=== PATIENT | female | born 1945 | race Caucasian/White ===

== ENCOUNTER 2018-09-17 12:18 | Outpatient (REF) | payer MEDICARE, BC, SELFPAY ==
[2018-09-17 20:54] LABS: Anion Gap 10.8 mmol/L (3-11); BUN 36 mg/dL (7-18); CO2 29.2 mmol/L (21.0-32.0); CREATININE 2.28 mg/dL (0.55-1.02); Calcium 9.2 mg/dL (8.5-10.1); Chloride 103 mmol/L (98-107); Glucose 211 mg/dL (70-100); Potassium 3.9 mmol/L (3.5-5.1); Sodium 143 mmol/L (136-145)
[2018-09-17 21:09] LABS: COMMENT (LAB VIEW ONLY) 132.93 mg/dL; Microalb ug/mg Crea 87.4 ug/mg Cr
== END 2018-09-17 12:38 ==
LOC: NCHCN 12:18
PROVIDERS: PCP Family Medicine; Visit Provider Family Medicine
DX: E11.9 Type 2 diabetes mellitus without complications (principal); I10 Essential (primary) hypertension; N18.4 Chronic kidney disease, stage 4 (severe)
CPT/HCPCS: 80048; 82043; 82570

== ENCOUNTER 2020-06-28 12:02 | Outpatient (REF) | payer MEDICARE, BC, SELFPAY ==
[2020-06-28 21:49] LABS: Anion Gap 9.7 mmol/L (3-11); BUN 32 mg/dL (7-18); CO2 25.3 mmol/L (21.0-32.0); CREATININE 2.26 mg/dL (0.55-1.02); Calcium 8.9 mg/dL (8.5-10.1); Chloride 106 mmol/L (98-107); Estimated GFR 21.15 (mL/min/1.73m2); Glucose 106 mg/dL (74-106); Sodium 141 mmol/L (136-145)
== END 2020-06-28 12:22 ==
LOC: NCHCN 12:02
PROVIDERS: PCP Family Medicine; Visit Provider Family Medicine
DX: N18.4 Chronic kidney disease, stage 4 (severe) (principal)
CPT/HCPCS: 80048

== ENCOUNTER 2020-11-15 11:16 | Outpatient (REF) | payer MEDICARE, BC, SELFPAY ==
[2020-11-15 13:48] LABS: Anion Gap 11.3 mmol/L (3-11); BUN 34 mg/dL (7-18); CO2 23.7 mmol/L (21.0-32.0); Calculated LDL 55 mg/dL (<100); Chloride 106 mmol/L (98-107); Cholesterol 125 mg/dL (<200); Estimated GFR 24.29 (mL/min/1.73m2); Glucose 122 mg/dL (74-106); HDL Cholesterol 50 mg/dL (40-60); Potassium 3.9 mmol/L (3.5-5.1); Sodium 141 mmol/L (136-145); Triglyceride 103 mg/dL (<150)
[2020-11-15 14:01] LABS: Uric Acid 7.5 mg/dL (2.6-6.0)
[2020-11-15 14:29] LABS: Microalb ug/mg Crea 233.1 ug/mg Cr
== END 2020-11-15 11:17 | disposition home or self-care (01) ==
LOC: NCHCN 11:16
PROVIDERS: PCP Family Medicine; Visit Provider Family Medicine
DX: E11.9 Type 2 diabetes mellitus without complications (principal); N18.4 Chronic kidney disease, stage 4 (severe); I10 Essential (primary) hypertension; M10.9 Gout, unspecified
CPT/HCPCS: 80048; 80061; 82043; 82570; 84550

== ENCOUNTER 2021-05-16 14:34 | Outpatient (REF) | payer MEDICARE, BC, SELFPAY ==
[2021-05-16 14:31] LABS: HGB 12.1 g/dL (11.2-15.7); MCH 31.3 pg (27.0-33.0); MCHC 33.6 % (32.0-36.0); MCV 93.3 fL (80-95); MPV 11.5 fL (8.0-11.0); Platelet Count 213 10^3/uL (130-400); RBC 3.86 10^6/uL (3.93-5.22); RDW 12.2 % (11.7-14.6); RDW-SD 41.7 fL; WBC 8.84 10^3/uL (4.4-10.8)
[2021-05-16 14:49] LABS: Hemoglobin A1C 7.1 % (<5.7)
[2021-05-16 15:12] LABS: Magnesium 1.6 mg/dL (1.8-2.4)
[2021-05-16 15:36] LABS: COMMENT (LAB VIEW ONLY) 127.65 mg/dL; Microalb ug/mg Crea 68.1 ug/mg Cr
[2021-05-16 18:19] LABS: Vitamin D 25 Total 35.9 ng/mL (30-100)
[2021-05-16 18:24] LABS: ALT 25 U/L (14-59); AST 18 U/L (15-37); Albumin 4.2 g/dL (3.4-5.0); Alkaline Phosphatase 129 U/L (46-116); Anion Gap 12.6 mmol/L (3-11); BUN 41 mg/dL (7-18); Bilirubin, Total 0.9 mg/dL (0.2-1.0); CO2 23.4 mmol/L (21.0-32.0); CREATININE 2.4 mg/dL (0.55-1.02); Calcium 9.1 mg/dL (8.5-10.1); Chloride 107 mmol/L (98-107); Estimated GFR 19.68 (mL/min/1.73m2); Glucose 220 mg/dL (74-106); Potassium 3.8 mmol/L (3.5-5.1); Sodium 143 mmol/L (136-145); Total Protein 7.2 g/dL (6.4-8.2); Vitamin B12 287 pg/mL (193-986)
[2021-05-16 18:34] LABS: PHOSPHORUS 3.7 mg/dL (2.6-4.7)
[2021-05-17 08:52] LABS: Parathyroid Hormone,Intact 43 pg/mL (19-88)
== END 2021-05-16 14:35 | disposition home or self-care (01) ==
LOC: NCHCN 14:34
PROVIDERS: PCP Family Medicine; Referring Provider Family Medicine; Visit Provider Family Medicine
DX: E11.9 Type 2 diabetes mellitus without complications (principal); I10 Essential (primary) hypertension; N18.4 Chronic kidney disease, stage 4 (severe); E55.9 Vitamin D deficiency, unspecified; D75.89 Other specified diseases of blood and blood-forming organs; E83.42 Hypomagnesemia; E78.5 Hyperlipidemia, unspecified; M10.9 Gout, unspecified
CPT/HCPCS: 80053; 82306; 85027; 82043; 82570; 82607; 83036; 83735; 83970; 84100

== ENCOUNTER 2021-08-09 23:56 | Outpatient (REF) | payer MEDICARE, BC, SELFPAY ==
[2021-08-09 20:56] LABS: BUN 36 mg/dL (7-18); CREATININE 2.5 mg/dL (0.55-1.02); Chloride 105 mmol/L (98-107); Estimated GFR 18.72 (mL/min/1.73m2); Glucose 155 mg/dL (74-106); Potassium 3.7 mmol/L (3.5-5.1); Sodium 142 mmol/L (136-145)
== END 2021-08-09 23:57 | disposition home or self-care (01) ==
LOC: NCHCN 23:56
PROVIDERS: PCP Family Medicine; Visit Provider Family Medicine
DX: N18.4 Chronic kidney disease, stage 4 (severe) (principal)
CPT/HCPCS: 80048

== ENCOUNTER 2021-12-17 16:34 | Outpatient (REF) | payer MEDICARE, BC, SELFPAY ==
[2021-12-19 12:32] LABS: COVID-19 RT-PCR UVMMC Result Negative (Negative)
== END 2021-12-17 16:35 | disposition home or self-care (01) ==
LOC: NCHCN 16:34
PROVIDERS: PCP Family Medicine; Visit Provider Registered Nurse
DX: Z20.822 Contact with and (suspected) exposure to COVID-19 (principal); J02.9 Acute pharyngitis, unspecified
CPT/HCPCS: U0003

== ENCOUNTER 2022-11-28 16:17 | Outpatient (REF) | payer MEDICARE, BC, SELFPAY ==
[2022-11-28 21:33] LABS: HCT 39.7 % (36.0-46.0); HGB 13.4 g/dL (11.2-15.7); MCH 30.7 pg (27.0-33.0); MCHC 33.8 % (32.0-36.0); MCV 91 fL (80-95); MPV 11.3 fL (8.0-11.0); Platelet Count 261 10^3/uL (130-400); RBC 4.37 10^6/uL (3.93-5.22); RDW 13.4 % (11.7-14.6); RDW-SD 44.9 fL; WBC 9.95 10^3/uL (4.4-10.8)
[2022-11-28 22:22] LABS: ALT 31 U/L (14-59); AST 29 U/L (15-37); Alkaline Phosphatase 111 U/L (46-116); Anion Gap 10.1 mmol/L (3-11); BUN 35 mg/dL (7-18); Bilirubin, Total 1.2 mg/dL (0.2-1.0); CO2 27.9 mmol/L (21.0-32.0); CREATININE 2.3 mg/dL (0.55-1.02); Calcium 9.2 mg/dL (8.5-10.1); Calculated LDL 51 mg/dL (<100); Chloride 104 mmol/L (98-107); Cholesterol 138 mg/dL (<200); Estimated GFR 21.36 (mL/min/1.73m2); Glucose 148 mg/dL (74-106); HDL Cholesterol 48 mg/dL (40-60); Potassium 3.9 mmol/L (3.5-5.1); Sodium 142 mmol/L (136-145); TSH (W/Ref FT4) 6.35 uIU/mL (0.36-3.74); Total Protein 7.8 g/dL (6.4-8.2); Triglyceride 197 mg/dL (<150)
[2022-11-28 22:25] LABS: Vitamin B12 > 2000 pg/mL (193-986)
[2022-11-28 22:51] LABS: FREE T4 0.82 ng/dL (0.76-1.46)
== END 2022-11-28 16:18 | disposition home or self-care (01) ==
LOC: NCHCN 16:17
PROVIDERS: PCP Family Medicine; Visit Provider Family Medicine
DX: E11.9 Type 2 diabetes mellitus without complications (principal); E53.8 Deficiency of other specified B group vitamins; F03.90 Unspecified dementia, unspecified severity, without behavioral disturbance, psychotic disturbance, mood disturbance, and anxiety
CPT/HCPCS: 80053; 80061; 85027; 82607; 84439; 84443

== ENCOUNTER 2023-02-27 13:41 | Outpatient (REF) | payer MEDICARE, BC, SELFPAY ==
[2023-02-27 16:02] LABS: Anion Gap 8.5 mmol/L (3-11); BUN 38 mg/dL (7-18); CO2 27.5 mmol/L (21.0-32.0); CREATININE 2.3 mg/dL (0.55-1.02); Chloride 106 mmol/L (98-107); Estimated GFR 21.36 (mL/min/1.73m2); Glucose 197 mg/dL (74-106); Potassium 3.7 mmol/L (3.5-5.1); Sodium 142 mmol/L (136-145)
[2023-02-27 16:27] LABS: Vitamin D 25 Total 57.8 ng/mL (30-100)
[2023-02-27 18:03] LABS: COMMENT (LAB VIEW ONLY) 169.72 mg/dL
== END 2023-02-27 13:42 | disposition home or self-care (01) ==
LOC: NCHCN 13:41
PROVIDERS: PCP Family Medicine; Visit Provider Family Medicine
DX: E55.9 Vitamin D deficiency, unspecified (principal); N18.4 Chronic kidney disease, stage 4 (severe); E11.9 Type 2 diabetes mellitus without complications
CPT/HCPCS: 80048; 82306; 82043; 82570

== ENCOUNTER 2023-04-09 09:05 | Outpatient (REF) | payer MEDICARE, BC, SELFPAY ==
--- OUTSIDE RECORDS SUMMARY | 2023-04-09 09:09 | XMS_ITS | CCD ---
Author Name Unknown Address [address] [place] [address] [phone] Organization Unknown Address [address] [place] [address] [phone] Care Team Providers Care Transportation Dispatcher Name Role Phone LINDA VELOZ Attending Physician [phone] Vital Signs Unknown or Not Available. Allergies Allergy Code Allergy Type Reaction Status MORPHINE 7052 Drug allergy Active Procedures Unknown or Not Available. History of Immunizations Unknown or Not Available. Problems Problem Code Start Date Resolved Date Status Chest pain 61838600 Active CAD 98027048 Active CKD stage 3 962212727 Active Diabetes type 2 with nephropathy 661745473 Active Results MICROALBUMIN URINE - Collect Date/Time: 03/11/2023 08:58 Test Name Code Test Result Test Units Test Ref Rang e Creatinine Urine 2161-8 219.4 mg/dl Microalb mg/dl 28698-2 53.8 mg/dl Microalbumin ug/mg C 9318-7 245.2 ug/mg Cr RENAL FUNCTION PANEL - [facility] ct Date/Time: 03/11/2023 08:58 Test Name Code Test Result Test Units Test Ref Rang e GLUCOSE 2345-7 202 mg/dL L=70 H=116 BUN 3094-0 28 mg/dL L=6 H=25 CREATININE 2160-0 2.45 mg/dL L=0.51 H=0.95 SODIUM SERUM 2951-2 138 mmol/L L=136 H=145 POTASSIUM SERUM 2823-3 3.7 mmol/L L=3.4 H=5 .2 CHLORIDE SERUM 2075-0 102 mmol/L L=96 H=110 CARBON DIOXIDE (CO2) 2028-9 28 mmol/L L=22 H=34 ANION GAP 60425-8 8.5 mmol/L CALCIUM SERUM 61455-3 9.2 mg/dL L=8.2 H=10. 2 ALBUMIN 1751-7 4.1 gm/dL L=3.4 H=5.0 PHOSPHORUS SERUM 4.3 mg/dL L=2.2 H= 4.2 AGE 77 years eGFR (non-Afr.Amer.) 59684-0 19 mL/min eGFR (Afr-Macanese) 31675-2 23 mL/min HEMOGRAM + PLATELET WO DIFF - Collect Date/Time: 03/11/2023 08:58 Test Name Code Test Result Test Units Test Ref Rang e WBC 6690-2 12.14 th/cmm L=5.00 H=10.00 NRBC % 87674-5 0.0 % L=0.0 H=0.0 NRBC abs count 27862-7 0.0 mil/cmm L=0.0 H=0. 0 RBC 789-8 4.38 mil/cmm L=3.90 H=5.40 HEMOGLOBIN 718-7 13.4 gm/dL L=12.0 H=16.0 HEMATOCRIT 4544-3 40 % L=37 H=47 MCV 787-2 91 fL L=82 H=92 MCH 785-6 30.6 pg L=27.0 H=31.0 MCHC 786-4 33.8 % L=32.0 H=36.0 RDW-SD 788-0 42.6 fL L=39.0 H=49.0 PLATELET COUNT 777-3 250 th/cmm L=150 H=45 0 URINALYSIS WITH MICROSCOPIC* - Collect Date/Time: 03/11/2023 08:58 Test Name Code Test Result Test Units Test Ref Rang e COLLECTION MODE: 49702-6 CLEAN CATCH N/A Color 5778-6 YELLOW N/A yellow Appearance 5767-9 CLEAR N/A clear Glucose urine 69474-9 NEGATIVE N/A negative mg /dl Bilirubin 5770-3 NEGATIVE N/A negative Ketones 2514-8 NEGATIVE N/A negative mg/dl Spec gravity 5811-5 1.025 N/A 1.003 - 1.03 0 pH urine 2756-5 6.0 N/A 5.0 - 7.0 Protein 06012-8 100 N/A negative mg/dl Urobilinogen 19522-3 0.2 N/A <or= 1 EU/dl Nitrite 5802-4 NEGATIVE N/A negative Blood 5794-3 TRACE-IN N/A negative Leukocytes 26745-5 TRACE N/A negative WBCs 61707-1 0-5 N/A 0-5 / hpf RBCs 66206-5 0-5 N/A 0-5 / hpf Epith cells 27369-2 5-10 N/A 0-5 / hpf Cell types squamous N/A Crystals none N/A none Bacteria none N/A none Mucus none N/A none Casts 48622-5 0-5 N/A none /lpf Cast types hyaline N/A PARATHYROID HORMONE INTACT - Collect Date/Time: 03/11/2023 08:58 Test Name Code Test Result Test Units Test Ref Rang e Intact PTH 79 N/A 19-88 Active Medications Medication Code Dose Units Frequency Route Modificatio n Start Date/Time Allopurinol 100MG Oral Tablet 152937 100 MILLIGRAMS DAILY ORAL 9 08:41 Prescription Detail TAKE 100 MILLIGRAMS ORAL DAILY Levemir 100U/1ML Subcutaneous Solution 565302 20 Unit(s) TWICE A DAY SUBCUTANEO 05/26/2019 08:41 Prescription Detail INJECT 20 Unit(s) SUBCUTANEOUS TWICE A D AY Lisinopril 30MG Oral Tablet 946830 30 MILLIGRAMS DAILY ORAL 019 08:41 Prescription Detail TAKE 30 MILLIGRAMS ORAL DAILY raNITIdine 150MG Oral Tablet 914512 150 MILLIGRAMS TWICE A DAY ORAL 05/26/2019 08:41 Prescription Detail TAKE 150 MILLIGRAMS ORAL TWICE A DAY hydroCHLOROthiaz jourdan 25MG Oral Tablet 894156 25 MILLIGRAMS DAILY ORAL 7 10:58 Prescription Detail TAKE 25 MILLIGRAMS ORAL DAILY Isosorbide Mononitrate 30MG Oral Tablet, Extended Release 707922 30 MILLIGRAMS DAILY ORAL 10:58 Prescription Detail TAKE 30 MILLIGRAMS ORAL DAILY Nitrostat 0.4MG Sublingual Tablet 593293 0.4 MILLIGRAMS NEEDED SUBLINGUAL 06/16/20 17 10:58 Prescription Detail DISSOLVE 0.4 MILLIGRAMS SUBLINGUAL NE EDED Aspir Low 81MG Oral Tablet, Enteric Coated 9260375 81 MILLIGRAMS DAILY ORAL 12/30 12:15 Prescription Detail TAKE 81 MILLIGRAMS ORAL DAILY Atorvastatin Calcium 40MG Oral Tablet 773584 40 MILLIGRAMS DAILY ORAL 016 12:15 Prescription Detail TAKE 40 MILLIGRAMS ORAL DAILY Medications Administered During Visit Unknown or Not Available. Encounters Encounter Diagnosis Diagnosis Code Start Date Chronic kidney disease stage 4 [id number] 0 03/11/2023 Social History Smoking Status Code Start Date End Date Never smoker 043300373 Patient Decision Aids Unknown or Not Available. Discharge Instructions You were admitted to [facility] on 03/11/2023 08:52 with a principal diagnosis of Chronic kidney disease, stage 4 (severe) You had the following tests done:HEMOGRAM + PLATELET WO DIFFMICROALBUMIN URINEPARATHYROID HORMONE INTACTRENAL FUNCTION PANELURINALYSIS WITH MICROSCOPIC* You were discharged from [facility] on 03/11/2023 08:52 Should you have any questions prior to discharge, please contact a member of your healthcare team. If you have left the hospital and have any questions, please contact your primary care physician. Chief Complaint and Reason For Visit Unknown or Not Available. Function Status Unknown or Not Available. Plan of Care Unknown or Not Available. Referral/Transition of Care Unknown or Not Available.
--- OUTSIDE RECORDS SUMMARY | 2023-04-09 09:09 | XMS_ITS | CCD ---
Author Name Unknown Address [address] [place] [address] [phone] Organization Unknown Address [address] [place] [address] [phone] Care Team Providers Care Hip Hop Dance Instructor Name Role Phone REGINE, MCKAGI Razo Attending Physician [phone] Vital Signs Unknown or Not Available. Allergies Allergy Code Allergy Type Reaction Status MORPHINE 7052 Drug allergy Active Procedures Unknown or Not Available. History of Immunizations Unknown or Not Available. Problems Problem Code Start Date Resolved Date Status Chest pain 54094282 Active CAD 68502805 Active CKD stage 3 223971254 Active Diabetes type 2 with nephropathy 638671381 Active Results Unknown or Not Available. Active Medications Medication Code Dose Units Frequency Route Modificatio n Start Date/Time Allopurinol 100MG Oral Tablet 030795 100 MILLIGRAMS DAILY ORAL 9 08:41 Prescription Detail TAKE 100 MILLIGRAMS ORAL DAILY Levemir 100U/1ML Subcutaneous Solution 754134 20 Unit(s) TWICE A DAY SUBCUTANEO 05/26/2019 08:41 Prescription Detail INJECT 20 Unit(s) SUBCUTANEOUS TWICE A D AY Lisinopril 30MG Oral Tablet 167264 30 MILLIGRAMS DAILY ORAL 019 08:41 Prescription Detail TAKE 30 MILLIGRAMS ORAL DAILY raNITIdine 150MG Oral Tablet 132710 150 MILLIGRAMS TWICE A DAY ORAL 05/26/2019 08:41 Prescription Detail TAKE 150 MILLIGRAMS ORAL TWICE A DAY hydroCHLOROthiaz jourdan 25MG Oral Tablet 694023 25 MILLIGRAMS DAILY ORAL 7 10:58 Prescription Detail TAKE 25 MILLIGRAMS ORAL DAILY Isosorbide Mononitrate 30MG Oral Tablet, Extended Release 390700 30 MILLIGRAMS DAILY ORAL 10:58 Prescription Detail TAKE 30 MILLIGRAMS ORAL DAILY Nitrostat 0.4MG Sublingual Tablet 550054 0.4 MILLIGRAMS NEEDED SUBLINGUAL 06/16/20 10:58 Prescription Detail DISSOLVE 0.4 MILLIGRAMS SUBLINGUAL NE EDED Aspir Low 81MG Oral Tablet, Enteric Coated 9529828 81 MILLIGRAMS DAILY ORAL 12/30 12:15 Prescription Detail TAKE 81 MILLIGRAMS ORAL DAILY Atorvastatin Calcium 40MG Oral Tablet 389994 40 MILLIGRAMS DAILY ORAL 016 12:15 Prescription Detail TAKE 40 MILLIGRAMS ORAL DAILY Medications Administered During Visit Unknown or Not Available. Encounters Encounter Diagnosis Diagnosis Code Start Date Abnormal findings on diagnos tic imaging of skull and head, not elsewhere classified R930 12/18/2022 Social History Smoking Status Code Start Date End Date Never smoker 549489501 Patient Decision Aids Unknown or Not Available. Discharge Instructions You were admitted to [facility] on 12/18/2022 09:49 with a principal diagnosis of Abnormal findings on diagnostic imaging of skull and head, not elsewhere classified You were discharged from [facility] on 12/18/2022 09:49 Should you have any questions prior to discharge, please contact a member of your healthcare team. If you have left the hospital and have any questions, please contact your primary care physician. Chief Complaint and Reason For Visit Chief Complaint Date of Onset DEMENTIA Function Status Unknown or Not Available. Plan of Care Unknown or Not Available. Referral/Transition of Care Unknown or Not Available.
--- OUTSIDE RECORDS SUMMARY | 2023-04-09 09:09 | XMS_ITS | CCD ---
Author Name Unknown Address [address] [place] [address] [phone] Organization Unknown Address [address] [place] [address] [phone] Care Team Providers Care Chronometer Tester Name Role Phone REGINE, MCKAGI Razo Attending Physician [phone] Vital Signs Unknown or Not Available. Allergies Allergy Code Allergy Type Reaction Status MORPHINE 7052 Drug allergy Active Procedures Unknown or Not Available. History of Immunizations Unknown or Not Available. Problems Problem Code Start Date Resolved Date Status Chest pain 42527649 Active CAD 89132979 Active CKD stage 3 521277179 Active Diabetes type 2 with nephropathy 434527189 Active Results Unknown or Not Available. Active Medications Medication Code Dose Units Frequency Route Modificatio n Start Date/Time Allopurinol 100MG Oral Tablet 620862 100 MILLIGRAMS DAILY ORAL 9 08:41 Prescription Detail TAKE 100 MILLIGRAMS ORAL DAILY Levemir 100U/1ML Subcutaneous Solution 053022 20 Unit(s) TWICE A DAY SUBCUTANEO 05/26/2019 08:41 Prescription Detail INJECT 20 Unit(s) SUBCUTANEOUS TWICE A D AY Lisinopril 30MG Oral Tablet 123104 30 MILLIGRAMS DAILY ORAL 019 08:41 Prescription Detail TAKE 30 MILLIGRAMS ORAL DAILY raNITIdine 150MG Oral Tablet 407640 150 MILLIGRAMS TWICE A DAY ORAL 05/26/2019 08:41 Prescription Detail TAKE 150 MILLIGRAMS ORAL TWICE A DAY hydroCHLOROthiaz jourdan 25MG Oral Tablet 769764 25 MILLIGRAMS DAILY ORAL 7 10:58 Prescription Detail TAKE 25 MILLIGRAMS ORAL DAILY Isosorbide Mononitrate 30MG Oral Tablet, Extended Release 712772 30 MILLIGRAMS DAILY ORAL 10:58 Prescription Detail TAKE 30 MILLIGRAMS ORAL DAILY Nitrostat 0.4MG Sublingual Tablet 879534 0.4 MILLIGRAMS NEEDED SUBLINGUAL 06/16/20 17 10:58 Prescription Detail DISSOLVE 0.4 MILLIGRAMS SUBLINGUAL NE EDED Aspir Low 81MG Oral Tablet, Enteric Coated 1331878 81 MILLIGRAMS DAILY ORAL 12/30 12:15 Prescription Detail TAKE 81 MILLIGRAMS ORAL DAILY Atorvastatin Calcium 40MG Oral Tablet 081012 40 MILLIGRAMS DAILY ORAL 016 12:15 Prescription Detail TAKE 40 MILLIGRAMS ORAL DAILY Medications Administered During Visit Unknown or Not Available. Encounters Encounter Diagnosis Diagnosis Code Start Date Unspecified dementia, unspecified severity, with anxiety [id number] 03/13/2023 Social History Smoking Status Code Start Date End Date Never smoker 272849702 Patient Decision Aids Unknown or Not Available. Discharge Instructions You were admitted to [facility] on 03/13/2023 08:48 with a principal diagnosis of Unspecified dementia, unspecified severity, with anxiety You were discharged from [facility] Should you have any questions prior to [...]
--- OUTSIDE RECORDS SUMMARY | 2023-04-09 09:10 | XMS_ITS | CCD ---
Author Name Unknown Address [address] [place] [address] [phone] Organization Unknown Address [address] [place] [address] [phone] Care Team Providers Care Gas Mask Assembler Name Role Phone REGINE, MCKAGI Razo Attending Physician [phone] Vital Signs Unknown or Not Available. Allergies Allergy Code Allergy Type Reaction Status MORPHINE 7052 Drug allergy Active Procedures Unknown or Not Available. History of Immunizations Unknown or Not Available. Problems Problem Code Start Date Resolved Date Status Chest pain 75321049 Active CAD 08520688 Active CKD stage 3 408110735 Active Diabetes type 2 with nephropathy 824728213 Active Results Unknown or Not Available. Active Medications Medication Code Dose Units Frequency Route Modificatio n Start Date/Time Allopurinol 100MG Oral Tablet 120755 100 MILLIGRAMS DAILY ORAL 9 08:41 Prescription Detail TAKE 100 MILLIGRAMS ORAL DAILY Levemir 100U/1ML Subcutaneous Solution 949542 20 Unit(s) TWICE A DAY SUBCUTANEO 05/26/2019 08:41 Prescription Detail INJECT 20 Unit(s) SUBCUTANEOUS TWICE A D AY Lisinopril 30MG Oral Tablet 231945 30 MILLIGRAMS DAILY ORAL 019 08:41 Prescription Detail TAKE 30 MILLIGRAMS ORAL DAILY raNITIdine 150MG Oral Tablet 617050 150 MILLIGRAMS TWICE A DAY ORAL 05/26/2019 08:41 Prescription Detail TAKE 150 MILLIGRAMS ORAL TWICE A DAY hydroCHLOROthiaz jourdan 25MG Oral Tablet 047774 25 MILLIGRAMS DAILY ORAL 7 10:58 Prescription Detail TAKE 25 MILLIGRAMS ORAL DAILY Isosorbide Mononitrate 30MG Oral Tablet, Extended Release 227265 30 MILLIGRAMS DAILY ORAL 10:58 Prescription Detail TAKE 30 MILLIGRAMS ORAL DAILY Nitrostat 0.4MG Sublingual Tablet 528164 0.4 MILLIGRAMS NEEDED SUBLINGUAL 06/16/20 17 10:58 Prescription Detail DISSOLVE 0.4 MILLIGRAMS SUBLINGUAL NE EDED Aspir Low 81MG Oral Tablet, Enteric Coated 6714161 81 MILLIGRAMS DAILY ORAL 12/30 12:15 Prescription Detail TAKE 81 MILLIGRAMS ORAL DAILY Atorvastatin Calcium 40MG Oral Tablet 966214 40 MILLIGRAMS DAILY ORAL 016 12:15 Prescription Detail TAKE 40 MILLIGRAMS ORAL DAILY Medications Administered During Visit Unknown or Not Available. Encounters Encounter Diagnosis Diagnosis Code Start Date Trochanteric bursitis, right hip M7061 03/13/2022 Social History Smoking Status Code Start Date End Date Never smoker 283688851 Patient Decision Aids Unknown or Not Available. Discharge Instructions You were admitted to [facility] on 03/13/2022 09:45 with a principal diagnosis of Trochanteric bursitis, right hip You were discharged from [facility] on 05/08/2022 12:25 Should you have any questions prior to [...]
--- OUTSIDE RECORDS SUMMARY | 2023-04-09 09:10 | XMS_ITS | CCD ---
Author Name Unknown Address [address] [place] [address] [phone] Organization Unknown Address [address] [place] [address] [phone] Care Team Providers Care Manager Transmission Name Role Phone MARIAELENA IQBAL Attending Physician [phone] Vital Signs Unknown or Not Available. Allergies Allergy Code Allergy Type Reaction Status MORPHINE 7052 Drug allergy Active Procedures Unknown or Not Available. History of Immunizations Unknown or Not Available. Problems Problem Code Start Date Resolved Date Status Chest pain 76174965 Active CAD 49104897 Active CKD stage 3 827818257 Active Diabetes type 2 with nephropathy 024962038 Active Results MICROALBUMIN URINE - Collect Date/Time: 09/01/2022 11:10 Test Name Code Test Result Test Units Test Ref Rang e Creatinine Urine 2161-8 273.9 mg/dl Microalb mg/dl 00673-4 51.0 mg/dl Microalbumin ug/mg C 9318-7 186.2 ug/mg Cr RENAL FUNCTION PANEL - [facility] ct Date/Time: 09/01/2022 11:10 Test Name Code Test Result Test Units Test Ref Rang e GLUCOSE 2345-7 152 mg/dL L=70 H=116 BUN 3094-0 29 mg/dL L=6 H=25 CREATININE 2160-0 2.13 mg/dL L=0.51 H=0.95 SODIUM SERUM 2951-2 140 mmol/L L=136 H=145 POTASSIUM SERUM 2823-3 3.8 mmol/L L=3.4 H=5 .2 CHLORIDE SERUM 2075-0 103 mmol/L L=96 H=110 CARBON DIOXIDE (CO2) 2028-9 28 mmol/L L=22 H=34 ANION GAP 83749-0 8.6 mmol/L CALCIUM SERUM 66324-9 9.2 mg/dL L=8.2 H=10. 2 ALBUMIN 1751-7 4.1 gm/dL L=3.4 H=5.0 PHOSPHORUS SERUM 4.5 mg/dL L=2.2 H= 4.2 AGE 77 years eGFR (non-Afr.Amer.) 00251-2 22 mL/min eGFR (Afr-Nauruan) 87255-7 27 mL/min HEMOGRAM + PLATELET WO DIFF - Collect Date/Time: 09/01/2022 11:10 Test Name Code Test Result Test Units Test Ref Rang e WBC 6690-2 9.89 th/cmm L=5.00 H=10.00 NRBC % 25080-8 0.0 % L=0.0 H=0.0 NRBC abs count 36573-4 0.0 mil/cmm L=0.0 H=0. 0 RBC 789-8 4.48 mil/cmm L=3.90 H=5.40 HEMOGLOBIN 718-7 13.9 gm/dL L=12.0 H=16.0 HEMATOCRIT 4544-3 41 % L=37 H=47 MCV 787-2 91 fL L=82 H=92 MCH 785-6 31.0 pg L=27.0 H=31.0 MCHC 786-4 34.0 % L=32.0 H=36.0 RDW-SD 788-0 43.8 fL L=39.0 H=49.0 PLATELET COUNT 777-3 250 th/cmm L=150 H=45 0 PARATHYROID HORMONE INTACT - Collect Date/Time: 09/01/2022 11:10 Test Name Code Test Result Test Units Test Ref Rang e Intact PTH 117 N/A 19-88 Active Medications Medication Code Dose Units Frequency Route Modificatio n Start Date/Time Allopurinol 100MG Oral Tablet 19720908 100 MILLIGRAMS DAILY ORAL 9 08:41 Prescription Detail TAKE 100 MILLIGRAMS ORAL DAILY Levemir 100U/1ML Subcutaneous Solution 893370 20 Unit(s) TWICE A DAY [facility] 05/26/2019 08:41 Prescription Detail INJECT 20 Unit(s) SUBCUTANEOUS TWICE A D AY Lisinopril 30MG Oral Tablet 209140 30 MILLIGRAMS DAILY ORAL 019 08:41 Prescription Detail TAKE 30 MILLIGRAMS ORAL DAILY raNITIdine 150MG Oral Tablet 19810501 150 MILLIGRAMS TWICE A DAY ORAL 05/26/2019 08:41 Prescription Detail TAKE 150 MILLIGRAMS ORAL TWICE A DAY hydroCHLOROthiaz jourdan 25MG Oral Tablet 947882 25 MILLIGRAMS DAILY ORAL 7 10:58 Prescription Detail TAKE 25 MILLIGRAMS ORAL DAILY Isosorbide Mononitrate 30MG Oral Tablet, Extended Release 799723 30 MILLIGRAMS DAILY ORAL 10:58 Prescription Detail TAKE 30 MILLIGRAMS ORAL DAILY Nitrostat 0.4MG Sublingual Tablet 552836 0.4 MILLIGRAMS NEEDED SUBLINGUAL 06/16/20 17 10:58 Prescription Detail DISSOLVE 0.4 MILLIGRAMS SUBLINGUAL NE EDED Aspir Low 81MG Oral Tablet, Enteric Coated 1979555 81 MILLIGRAMS DAILY ORAL 12/30 12:15 Prescription Detail TAKE 81 MILLIGRAMS ORAL DAILY Atorvastatin Calcium 40MG Oral Tablet 525163 40 MILLIGRAMS DAILY ORAL 016 12:15 Prescription Detail TAKE 40 MILLIGRAMS ORAL DAILY Medications Administered During Visit Unknown or Not Available. Encounters Encounter Diagnosis Diagnosis Code Start Date Chronic kidney disease stage 4 [id number] 0 09/01/2022 Social History Smoking Status Code Start Date End Date Never smoker 595889187 Patient Decision Aids Unknown or Not Available. Discharge Instructions You were admitted to [facility] on 09/01/2022 11:04 with a principal diagnosis of Chronic kidney disease, stage 4 (severe) You had the following tests done:HEMOGRAM + PLATELET WO DIFFMICROALBUMIN URINEPARATHYROID HORMONE INTACTRENAL FUNCTION PANEL You were discharged from [facility] on 09/01/2022 11:04 Should you have any questions prior to [...]
--- OUTSIDE RECORDS SUMMARY | 2023-04-09 09:10 | XMS_ITS | CCD ---
Author Name Unknown Address [address] [place] [address] [phone] Organization Unknown Address [address] [place] [address] [phone] Care Team Providers Care Curriculum Supervisor Name Role Phone FLAVIO FAYE Attending Physician [phone] FLAVIO FAYE Rounding (Secondary) Physicia n [phone] Vital Signs Unknown or Not Available. Allergies Allergy Code Allergy Type Reaction Status MORPHINE 7052 Drug allergy Active Procedures Unknown or Not Available. History of Immunizations Unknown or Not Available. Problems Problem Code Start Date Resolved Date Status Chest pain 93456825 Active CAD 54270159 Active CKD stage 3 059104019 Active Diabetes type 2 with nephropathy 105949636 Active Results Unknown or Not Available. Active Medications Medication Code Dose Units Frequency Route Modificatio n Start Date/Time Allopurinol 100MG Oral Tablet 713945 100 MILLIGRAMS DAILY ORAL 9 08:41 Prescription Detail TAKE 100 MILLIGRAMS ORAL DAILY Levemir 100U/1ML Subcutaneous Solution 345057 20 Unit(s) TWICE A DAY SUBCUTANEO 05/26/2019 08:41 Prescription Detail INJECT 20 Unit(s) SUBCUTANEOUS TWICE A D AY Lisinopril 30MG Oral Tablet 668835 30 MILLIGRAMS DAILY ORAL 019 08:41 Prescription Detail TAKE 30 MILLIGRAMS ORAL DAILY raNITIdine 150MG Oral Tablet 948142 150 MILLIGRAMS TWICE A DAY ORAL 05/26/2019 08:41 Prescription Detail TAKE 150 MILLIGRAMS ORAL TWICE A DAY hydroCHLOROthiaz jourdan 25MG Oral Tablet 124778 25 MILLIGRAMS DAILY ORAL 7 10:58 Prescription Detail TAKE 25 MILLIGRAMS ORAL DAILY Isosorbide Mononitrate 30MG Oral Tablet, Extended Release 899846 30 MILLIGRAMS DAILY ORAL 10:58 Prescription Detail TAKE 30 MILLIGRAMS ORAL DAILY Nitrostat 0.4MG Sublingual Tablet 801843 0.4 MILLIGRAMS NEEDED SUBLINGUAL 06/16/20 17 10:58 Prescription Detail DISSOLVE 0.4 MILLIGRAMS SUBLINGUAL NE EDED Aspir Low 81MG Oral Tablet, Enteric Coated 4607149 81 MILLIGRAMS DAILY ORAL 12/30 12:15 Prescription Detail TAKE 81 MILLIGRAMS ORAL DAILY Atorvastatin Calcium 40MG Oral Tablet 104675 40 MILLIGRAMS DAILY ORAL 016 12:15 Prescription Detail TAKE 40 MILLIGRAMS ORAL DAILY Medications Administered During Visit Unknown or Not Available. Encounters Encounter Diagnosis Diagnosis Code Start Date Hallux rigidus, left foot M2022 2021 Social History Smoking Status Code Start Date End Date Never smoker 864061730 Patient Decision Aids Unknown or Not Available. Discharge Instructions You were admitted to [facility] on 12/06/2021 14:49 with a principal diagnosis of Hallux rigidus, left foot You were discharged from [facility] on 12/06/2021 00:00 Should you have any questions prior to [...]
--- OUTSIDE RECORDS SUMMARY | 2023-04-09 09:10 | XMS_ITS | CCD ---
Author Name Unknown Address [address] [place] [address] [phone] Organization Unknown Address [address] [place] [address] [phone] Care Team Providers Care Toe Former Name Role Phone MALIA JANE Attending Physician [phone] MALIA JANE Rounding (Secondary) Physician [phone] Vital Signs Unknown or Not Available. Allergies Allergy Code Allergy Type Reaction Status MORPHINE 7052 Drug allergy Active Procedures Unknown or Not Available. History of Immunizations Unknown or Not Available. Problems Problem Code Start Date Resolved Date Status Chest pain 37102253 Active CAD 23445002 Active CKD stage 3 059748408 Active Diabetes type 2 with nephropathy 744797462 Active Results Unknown or Not Available. Active Medications Medication Code Dose Units Frequency Route Modificatio n Start Date/Time Allopurinol 100MG Oral Tablet 917150 100 MILLIGRAMS DAILY ORAL 9 08:41 Prescription Detail TAKE 100 MILLIGRAMS ORAL DAILY Levemir 100U/1ML Subcutaneous Solution 741469 20 Unit(s) TWICE A DAY SUBCUTANEO 05/26/2019 08:41 Prescription Detail INJECT 20 Unit(s) SUBCUTANEOUS TWICE A D AY Lisinopril 30MG Oral Tablet 795114 30 MILLIGRAMS DAILY ORAL 019 08:41 Prescription Detail TAKE 30 MILLIGRAMS ORAL DAILY raNITIdine 150MG Oral Tablet 926369 150 MILLIGRAMS TWICE A DAY ORAL 05/26/2019 08:41 Prescription Detail TAKE 150 MILLIGRAMS ORAL TWICE A DAY hydroCHLOROthiaz jourdan 25MG Oral Tablet 328676 25 MILLIGRAMS DAILY ORAL 7 10:58 Prescription Detail TAKE 25 MILLIGRAMS ORAL DAILY Isosorbide Mononitrate 30MG Oral Tablet, Extended Release 874012 30 MILLIGRAMS DAILY ORAL 10:58 Prescription Detail TAKE 30 MILLIGRAMS ORAL DAILY Nitrostat 0.4MG Sublingual Tablet 442928 0.4 MILLIGRAMS NEEDED SUBLINGUAL 06/16/20 17 10:58 Prescription Detail DISSOLVE 0.4 MILLIGRAMS SUBLINGUAL NE EDED Aspir Low 81MG Oral Tablet, Enteric Coated 5123134 81 MILLIGRAMS DAILY ORAL 12/30 12:15 Prescription Detail TAKE 81 MILLIGRAMS ORAL DAILY Atorvastatin Calcium 40MG Oral Tablet 008574 40 MILLIGRAMS DAILY ORAL 016 12:15 Prescription Detail TAKE 40 MILLIGRAMS ORAL DAILY Medications Administered During Visit Unknown or Not Available. Encounters Encounter Diagnosis Diagnosis Code Start Date Iliotibial band friction syndrome [id number] 07/18/2021 Social History Smoking Status Code Start Date End Date Never smoker 347993697 Patient Decision Aids Unknown or Not Available. Discharge Instructions You were admitted to [facility] on 07/18/2021 08:20 with a principal diagnosis of Iliotibial band syndrome You were discharged from [facility] on 07/18/2021 00:00 Should you have any questions prior [...]
[2023-04-09 16:35] LABS: Anion Gap 12.1 mmol/L (3-11); BUN 27 mg/dL (7-18); CO2 24.9 mmol/L (21.0-32.0); CREATININE 2.1 mg/dL (0.55-1.02); Chloride 102 mmol/L (98-107); Estimated GFR 23.82 (mL/min/1.73m2); Glucose 247 mg/dL (74-106); Potassium 3.5 mmol/L (3.5-5.1); Sodium 139 mmol/L (136-145)
== END 2023-04-09 09:06 | disposition home or self-care (01) ==
LOC: NCHCN 09:05
PROVIDERS: PCP Family Medicine; Visit Provider Family Medicine
DX: I10 Essential (primary) hypertension (principal); N18.4 Chronic kidney disease, stage 4 (severe)
CPT/HCPCS: 80048

== ENCOUNTER 2023-06-26 16:22 | Outpatient (REF) | payer MEDICARE, BC, SELFPAY ==
[2023-06-26 15:34] LABS: BUN 32 mg/dL (7-18); CREATININE 2.1 mg/dL (0.55-1.02); Calcium 9.2 mg/dL (8.5-10.1); Chloride 105 mmol/L (98-107); Estimated GFR 23.82 (mL/min/1.73m2); Glucose 188 mg/dL (74-106); Potassium 3.3 mmol/L (3.5-5.1); Sodium 141 mmol/L (136-145)
== END 2023-06-26 16:23 | disposition home or self-care (01) ==
LOC: NCHCN 16:22
PROVIDERS: PCP Family Medicine; Visit Provider Family Medicine
DX: I10 Essential (primary) hypertension (principal)
CPT/HCPCS: 80048

== ENCOUNTER 2023-09-24 15:18 | Outpatient (REF) | payer MEDICARE, SELFPAY ==
[2023-09-24 21:48] LABS: Abs Immature Grans 0.04 10^3/uL (0.0-0.06); Absolute Basophil Count 0.12 10^3/uL (0.0-0.2); Absolute Lymphocyte Count 1.86 10^3/uL (1.2-3.4); Absolute Monocyte Count 1.08 10^3/uL (0.1-0.8); Absolute Neutrophil Count 8.54 10^3/uL (1.2-6.7); Eosinophils % 1.9; HCT 38.8 % (36.0-46.0); HGB 13.3 g/dL (11.2-15.7); Immature Grans % 0.3; Lymphocytes % 15.7; MCH 29.6 pg (27.0-33.0); MCHC 34.3 % (32.0-36.0); MCV 86 fL (80-95); Monocytes % 9.1; Platelet Count 243 10^3/uL (130-400); RDW 14.2 % (11.7-14.6); WBC 11.86 10^3/uL (4.4-10.8)
[2023-09-24 21:51] LABS: Absolute Eosinophil Count 0.23 10^3/uL (0.0-0.7)
[2023-09-24 22:09] LABS: ALT 25 U/L (14-59); AST 28 U/L (15-37); Albumin 3.7 g/dL (3.4-5.0); Alkaline Phosphatase 123 U/L (46-116); Anion Gap 10.3 mmol/L (3-11); BUN 31 mg/dL (7-18); Bilirubin, Total 1.9 mg/dL (0.2-1.0); CO2 25.7 mmol/L (21.0-32.0); CREATININE 2.3 mg/dL (0.55-1.02); Calcium 9.2 mg/dL (8.5-10.1); Chloride 105 mmol/L (98-107); Estimated GFR 21.22 (mL/min/1.73m2); Glucose 231 mg/dL (74-106); Magnesium 1.4 mg/dL (1.8-2.4); Potassium 3.1 mmol/L (3.5-5.1); Sodium 141 mmol/L (136-145); TSH (W/Ref FT4) 5.95 uIU/mL (0.36-3.74); Total Protein 7.7 g/dL (6.4-8.2)
[2023-09-24 22:28] LABS: FREE T4 0.91 ng/dL (0.76-1.46)
[2023-09-25 10:00] LABS: Hemoglobin A1C 6.8 % (<5.7)
== END 2023-09-24 15:19 | disposition home or self-care (01) ==
LOC: NCHCN 15:18
PROVIDERS: PCP Family Medicine; Visit Provider Family Medicine
DX: E11.9 Type 2 diabetes mellitus without complications (principal); N18.4 Chronic kidney disease, stage 4 (severe); R94.6 Abnormal results of thyroid function studies; E87.6 Hypokalemia; E83.42 Hypomagnesemia
CPT/HCPCS: 80053; 83036; 83735; 84439; 84443; 85025

== ENCOUNTER 2023-10-09 16:17 | Outpatient (REF) | payer MEDICARE, SELFPAY ==
[2023-10-09 14:29] LABS: Anion Gap 12.8 mmol/L (3-11); BUN 22 mg/dL (7-18); CO2 22.2 mmol/L (21.0-32.0); Calcium 8.9 mg/dL (8.5-10.1); Chloride 105 mmol/L (98-107); Glucose 277 mg/dL (74-106); Potassium 3.6 mmol/L (3.5-5.1); Sodium 140 mmol/L (136-145)
== END 2023-10-09 16:18 | disposition home or self-care (01) ==
LOC: NCHCN 16:17
PROVIDERS: PCP Family Medicine; Visit Provider Family Medicine
DX: E87.6 Hypokalemia (principal)
CPT/HCPCS: 80048

== ENCOUNTER 2023-12-04 18:39 | Outpatient (REF) | payer MEDICARE, BC, SELFPAY ==
[2023-12-04 15:56] LABS: BUN 28 mg/dL (7-18); CREATININE 2.1 mg/dL (0.55-1.02); Chloride 103 mmol/L (98-107); Estimated GFR 23.67 (mL/min/1.73m2); Glucose 246 mg/dL (74-106); Potassium 3.5 mmol/L (3.5-5.1); Sodium 140 mmol/L (136-145)
== END 2023-12-04 18:40 | disposition home or self-care (01) ==
LOC: NCHCN 18:39
PROVIDERS: PCP Family Medicine; Referring Provider Family Medicine; Visit Provider Family Medicine
DX: N18.4 Chronic kidney disease, stage 4 (severe) (principal); E78.5 Hyperlipidemia, unspecified; E87.6 Hypokalemia; R60.0 Localized edema
CPT/HCPCS: 80048

== ENCOUNTER 2024-08-11 16:14 | Outpatient (REF) | payer MEDICARE, BC, SELFPAY ==
[2024-08-11 22:59] LABS: COMMENT (LAB VIEW ONLY) 90.93 mg/dL
== END 2024-08-11 16:15 | disposition home or self-care (01) ==
LOC: NCHCN 16:14
PROVIDERS: PCP Family Medicine; Visit Provider Family Medicine
DX: E11.9 Type 2 diabetes mellitus without complications (principal)
CPT/HCPCS: 82043; 82570

== ENCOUNTER 2024-12-02 13:22 | Outpatient (REF) | payer MEDICARE, BC, SELFPAY ==
[2024-12-02 14:32] LABS: HCT 38.9 % (36.0-46.0); MCH 30.7 pg (27.0-33.0); MCHC 33.4 % (32.0-36.0); MCV 92 fL (80-95); Platelet Count 270 10^3/uL (130-400); RBC 4.24 10^6/uL (3.93-5.22); RDW-SD 43.4 fL; WBC 10.78 10^3/uL (4.4-10.8)
[2024-12-02 15:05] LABS: Anion Gap 10.6 mmol/L (3-11); BUN 44 mg/dL (7-18); CO2 27.4 mmol/L (21.0-32.0); CREATININE 3.2 mg/dL (0.55-1.02); Calcium 9.1 mg/dL (8.5-10.1); Chloride 105 mmol/L (98-107); Estimated GFR 14.19 (mL/min/1.73m2); Ferritin 110 ng/mL (8-252); Glucose 234 mg/dL (74-106); Potassium 3.5 mmol/L (3.5-5.1); Sodium 143 mmol/L (136-145); Vitamin D 25 Total 42 ng/mL (30-100)
== END 2024-12-02 13:23 | disposition home or self-care (01) ==
LOC: NCHCN 13:22
PROVIDERS: PCP Family Medicine; Visit Provider Family Medicine
DX: N18.4 Chronic kidney disease, stage 4 (severe) (principal)
CPT/HCPCS: 80048; 82306; 85027; 82728; 83970

== ENCOUNTER 2025-02-23 17:53 | Outpatient (REF) | payer MEDICARE, BC, SELFPAY ==
[2025-02-23 20:59] LABS: ALT 35 U/L (14-59); AST 28 U/L (15-37); Albumin 3.3 g/dL (3.4-5.0); Alkaline Phosphatase 145 U/L (46-116); Anion Gap 9.4 mmol/L (3-11); BUN 49 mg/dL (7-18); Bilirubin, Total 1.2 mg/dL (0.2-1.0); CO2 25.6 mmol/L (21.0-32.0); CREATININE 3.2 mg/dL (0.55-1.02); Calcium 8.7 mg/dL (8.5-10.1); Chloride 104 mmol/L (98-107); Estimated GFR 14.19 (mL/min/1.73m2); Glucose 328 mg/dL (74-106); Potassium 3.4 mmol/L (3.5-5.1); Sodium 139 mmol/L (136-145); Total Protein 6.6 g/dL (6.4-8.2)
== END 2025-02-23 17:54 | disposition home or self-care (01) ==
LOC: NCHCN 17:53
PROVIDERS: PCP Family Medicine; Visit Provider Family Medicine
DX: N18.4 Chronic kidney disease, stage 4 (severe) (principal); E87.6 Hypokalemia
CPT/HCPCS: 80053